=== PATIENT | female | born 1955 | race Caucasian/White ===

== ENCOUNTER → 2017-11-09 | Outpatient (CLI) | payer OTHER ==
[~2017-11-09] MED LIST: ASP81CT PO; ASPI-892 PO; CARV3.122 PO; DEPO ESTRADIOL IM; ENAL2.5T PO; ENLP10T PO; FERR240T9 PO; FERR27TA PO; HYDR-2889 PO; HYDR1TAB8 OP; IBP200T PO; LOVA10TA PO; LOVA20TA2 PO; MELO-195 PO; MTF500T PO; NAPR220C11 PO; OMG1KC PO; OXYC-12 PO; PANT20TA2 PO; PNT40TEC PO; SIMV20TA3 PO
--- NOTE | 2017-11-09 10:01 | Diagnostic Imaging Report ---
PROCEDURE: CT chest without contrast. TECHNIQUE: Multiple contiguous axial images were obtained through the chest without the use of intravenous contrast. INDICATION: Followup lung nodule. COMPARISON: 11/06/2016. FINDINGS: There is upper lobe predominant mild emphysema changes. There is a nodule in the left lung base in the inferior lingula demonstrating calcification and measuring 1.5 cm. This is stable from the previous exam when measured in a similar fashion and is compatible with a granuloma. No other pulmonary nodule, mass, or significant consolidation is seen. The heart size is normal. No pericardial or pleural effusion. The thoracic aorta is normal in caliber. There is no mediastinal mass. No axillary lymphadenopathy. There is a nodule measuring 1.3 cm seen in the medial aspect of the left breast. Evaluation with breast ultrasound and mammogram is recommended. Sections of the upper abdomen demonstrate hepatic steatosis. The osseous structures demonstrate degenerative changes in the thoracic spine. IMPRESSION: 1. A 1.3-cm medial left breast nodule. Evaluation with mammogram and ultrasound is recommended. 2. Stable calcified 1.5-cm nodule in the left lung base suggestive of a prior granulomatous infection. Report was stat faxed to office of Chrissy Morales APRN, @ 9:59 AM/raji. Dictated by: Dictated on workstation # [id number]
== END ==
LOC: RAD 08:29
PROVIDERS: ATTEND Nurse Practitioner Family
DX: R91.1 Solitary pulmonary nodule (principal); N63.20 Unspecified lump in the left breast, unspecified quadrant
CPT/HCPCS: 71250

== ENCOUNTER → 2017-12-02 | Outpatient (CLI) | payer BC, OTHER ==
--- NOTE | 2017-12-03 13:06 | Diagnostic Imaging Report ---
EXAMINATION: Bilateral screening mammogram with CAD. INDICATION: Screening. COMPARISON: 05/15/2015 and 11/14/2014. PERSONAL HISTORY: At this time, there are no current complaints. FINDINGS: The previous exam did note that there was a small nodular density in the lateral aspect of the left breast. This nodular density had been biopsied and there was a stereotactic clip within the density. 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 That finding is again evident and does not seem to have changed significantly. The previous exam also identified another similar-appearing nodular density in the medial aspect of the left breast at the 9 to 10 o'clock position roughly 11 cm from the nipple. This nodular density measured approximately 1.5 cm in maximum length. That nodular density is again identified and now measures 2.0 cm. I do suspect that this is a benign process and this may represent another fibroadenoma. This nodule was also identified by ultrasound on the prior exam of 05/15/2015. At that time, the nodule measured 1.0 x 0.4 x 0.8 cm. The overall appearance of the breasts has not changed significantly otherwise. There is no primary or secondary sign of malignancy noted. IMPRESSION: 1. In the roughly 30 month interval since the prior exam, the small benign-appearing nodular density in the medial aspect of the left breast has increased in size. This is still most likely a benign process but ultrasound would be recommended for further evaluation. 2. The overall appearance of the breast is otherwise stable. There is no primary or secondary sign of malignancy noted. ACR BI-RADS Category 0: Incomplete. (Needs additional imaging evaluation). Result letter will be mailed to the patient. Note: At least 10% of breast cancer is not imaged by mammography. Dictated on workstation # [id number]
== END ==
LOC: RAD 14:54
PROVIDERS: ATTEND Family Medicine
DX: Z12.31 Encounter for screening mammogram for malignant neoplasm of breast (principal)
CPT/HCPCS: 77067

== ENCOUNTER → 2017-12-14 | Outpatient (CLI) | payer BC ==
--- NOTE | 2017-12-14 16:03 | Diagnostic Imaging Report ---
INDICATION: Enlarging nodules noted on the recent mammogram. COMPARISON: Correlation is made with the recent screening mammogram from 12/02/2017 and a left breast ultrasound from 05/15/2015. FINDINGS: There are three well-defined hypoechoic nodules noted in the left breast. The mass at the 2:30 location 5 cm from the nipple measures 1.0 x 0.5 x 0.8 cm and contains a clip from a recent biopsy. This was proven to represent a fibroadenoma. A hypoechoic nodule at the 1:30 location 5 cm from the nipple measures 0.8 x 0.5 x 0.9 cm, stable and most consistent with a fibroadenoma. An ovoid solid nodule at the 10 o'clock location 6 cm from the nipple is seen measuring 1.0 x 0.5 x 1.3 cm. This does show a slight increase in size when compared with the prior mammogram and ultrasound. No new mass is seen. IMPRESSION: 1. Stable hypoechoic nodules at the 2:30 and 1:30 location of the left breast, most consistent with fibroadenomas. 2. Slight increase in the size of a solid nodule at the 10 o'clock location of the left breast. This, too, most likely represents a mildly enlarging fibroadenoma; however, further evaluation with an ultrasound-guided core biopsy is recommended for confirmation. ACR BI-RADS Category 4: Suspicious abnormality. Result letter will be mailed to the patient. Note: At least 10% of breast cancer is not imaged by mammography. Dictated by: Dictated on workstation # [id number]
== END ==
LOC: RAD 13:44
PROVIDERS: ATTEND Family Medicine
DX: N63.21 Unspecified lump in the left breast, upper outer quadrant (principal); N63.22 Unspecified lump in the left breast, upper inner quadrant
CPT/HCPCS: 76642

== ENCOUNTER → 2017-12-21 | Outpatient (CLI) | payer BC ==
[~2017-12-21] VITALS: Ht 170.2 cm; Wt 95.3 kg
[~2017-12-21] MED LIST changes: +LIDOCAINE 1% INJ 20 ML (XYLOCAINE) VIAL INJ ONE; +LIDOCAINE 1% INJ 50 ML (XYLOCAINE) VIAL ONE
[2017-12-21 14:16] VITALS: BP 118/67
[2017-12-21 15:10] VITALS: BP 120/69
--- NOTE | 2017-12-21 15:25 | Diagnostic Imaging Report ---
INDICATION: Left breast mass. Patient presents for ultrasound-guided biopsy of the hypoechoic nodule at the 10 o'clock location. TECHNIQUE: The patient was brought to the procedure room and placed on the bed in the supine position. Ultrasound imaging over the left breast was performed to evaluate for appropriate entry site. The left breast was prepped and draped in the usual sterile fashion. A small amount of 1% lidocaine was utilized for local anesthesia. A total of three passes was made with a 14-gauge Achieve needle obtaining core biopsies. A localizer clip was then deployed adjacent to the mass. Hemostasis was obtained using manual compression. The patient tolerated the procedure well and was sent for postprocedure mammography in satisfactory condition. IMPRESSION: Successful ultrasound-guided core biopsy of the hypoechoic mass at the 10 o'clock location of the left breast. Dictated by: Dictated on workstation # [id number]
--- NOTE | 2017-12-21 15:56 | Diagnostic Imaging Report ---
Indication: Status post left breast biopsy. Comparison: Correlation is made with the examination from 12/02/2017. Findings: A biopsy clip is identified in the upper inner left breast at the site of previously noted nodule. There is some increased density at this location consistent with hematoma. Impression: Clip location is noted adjacent to the nodule in the upper inner left breast. Dictated by: Dictated on workstation # [id number]
== END ==
LOC: RAD 13:46
PROVIDERS: ATTEND Family Medicine
DX: N63.0 Unspecified lump in unspecified breast (principal)
CPT/HCPCS: 19083

== ENCOUNTER → 2019-04-06 | Outpatient (CLI) | payer BC, OTHER ==
[~2019-04-06] MED LIST changes: +CATHETER FLUSH 10 ML SYR IV PRN; -LIDOCAINE 1% INJ 20 ML (XYLOCAINE) VIAL INJ ONE; -LIDOCAINE 1% INJ 50 ML (XYLOCAINE) VIAL ONE; +REGADENOSON 0.4 MG/5 ML SYR (LEXISCAN) IV ONE
--- NOTE | 2019-04-06 15:37 | STRESS TEST ---
DATE OF SERVICE: 04/06/2019 LEXISCAN MYOVIEW STRESS TEST REPORT REFERRING PHYSICIAN Dr. Doug Correa. Baseline heart rate is 46. Baseline blood pressure is 137/72. Baseline EKG is sinus rhythm with no ischemic changes. In summary, the patient was injected with 10.59 mCi of technetium-99 Myoview and the resting images were obtained. Then, the patient received 0.4 mg of Lexiscan followed by 30.4 mCi of technetium-99 Myoview. Throughout the test, there were no EKG changes. The resting and stress images were reviewed and compared in the short axis, horizontal long axis, and vertical long axis views. Review of the images showed good radiotracer uptake with breast attenuation, there is mild decreased uptake at the basal to mid anterior septum with subtle reversibility, no significant ischemia was noted. SSS is 5, SDS 5, TID value 1.0. On the gated images, the left ventricle appeared to be normal size with normal contractility. Calculated ejection fraction 53%. CONCLUSION: 1. The patient tolerated Lexiscan well. 2. Breast attenuation with typical female pattern, no significant ischemia or infarction on SPECT images. 3. Normal left ventricular size with normal contractility. Calculated ejection fraction is 53%. Job ID: [id number] DocumentID: [id number] Dictated Date: 04/06/2019 15:14:10 Cutter Apprentice Hand Date: 04/06/2019 15:36:38 Dictated By: COLTON LARSEN MD
== END ==
LOC: CARD 09:32
PROVIDERS: ATTEND Physician Assistant
DX: I25.10 Atherosclerotic heart disease of native coronary artery without angina pectoris (principal); I11.0 Hypertensive heart disease with heart failure; I50.22 Chronic systolic (congestive) heart failure; E78.5 Hyperlipidemia, unspecified; E11.9 Type 2 diabetes mellitus without complications
CPT/HCPCS: 78452; 93017

== ENCOUNTER → 2021-09-16 | Outpatient (CLI) | payer BC, OTHER ==
[~2021-09-16] MED LIST changes: -CATHETER FLUSH 10 ML SYR IV PRN; -REGADENOSON 0.4 MG/5 ML SYR (LEXISCAN) IV ONE
--- NOTE | 2021-09-16 12:33 | Diagnostic Imaging Report ---
INDICATION: Routine screening. COMPARISON: 12/02/2017 and 11/14/2014. TECHNIQUE: 2D and 3D bilateral screening mammography was performed with CAD. FINDINGS: Scattered fibroglandular densities are identified bilaterally. The nodular densities in the left breast appear stable. Marker clips adjacent to the densities are noted, consistent with prior biopsy. No new mass is identified. No malignant-appearing microcalcifications are seen. IMPRESSION: No mammographic features suspicious for malignancy are identified. ACR BI-RADS Category 2: Benign findings. Result letter will be mailed to the patient. Note: At least 10% of breast cancer is not imaged by mammography. Dictated by: Dictated on workstation # [id number]
== END ==
LOC: RAD 09:24
PROVIDERS: ATTEND Family Medicine
DX: Z12.31 Encounter for screening mammogram for malignant neoplasm of breast (principal)
CPT/HCPCS: 77063; 77067

== ENCOUNTER → 2023-04-22 | Outpatient (CLI) | payer MEDICARE, OTHER, MEDICAID ==
--- NOTE | 2023-04-22 20:22 | Diagnostic Imaging Report ---
INDICATION: Routine screening. COMPARISON: Prior mammograms from 09/16/2021 and 12/02/2017. EXAMINATION: 2D and 3D bilateral screening mammography was performed with CAD. The current study was also evaluated with a Computer Aided Detection (CAD) system. FINDINGS: Scattered fibroglandular densities are identified, bilaterally. Nodular densities in the medial and lateral left breast with marker clips again noted appear stable. No new mass or malignant-appearing microcalcifications are seen. Axillae are unremarkable. IMPRESSION: No mammographic features suspicious for malignancy are identified. ACR BI-RADS Category 2: Benign findings. Result letter will be mailed to the patient. Note: At least 10% of breast cancer is not imaged by mammography. Dictated by: Dictated on workstation # [id number]
== END ==
LOC: RAD 09:44
PROVIDERS: ATTEND Family Medicine
DX: Z12.31 Encounter for screening mammogram for malignant neoplasm of breast (principal)
CPT/HCPCS: 77063; 77067

== ENCOUNTER → 2023-07-20 | Outpatient (CLI) | payer MEDICARE, OTHER, MEDICAID | LOC: CARD 12:40 | PROVIDERS: ATTEND Physician Assistant | DX: R07.9 Chest pain, unspecified (principal); I11.9 Hypertensive heart disease without heart failure | CPT/HCPCS: 93306 ==

== ENCOUNTER → 2023-08-31 | Outpatient (CLI) | payer MEDICARE, OTHER, MEDICAID ==
[~2023-08-31] VITALS: Ht 175 cm; Wt 96.0 kg
[~2023-08-31] MED LIST changes: +AMLO-250 PO; +ASCO-262 PO; +ASPI-1238 PO; +BACL10TA PO; +CARV12.53 PO; +CHOL-34 PO; +ENAL-70 PO; +ESTR1TAB27 PO; +EZET10TA49 PO; +FENO145T26 PO; +FERR-84 PO; +INSU100I88 SQ; +METF-397 PO; +NAPR-1033 PO; +OMEG100032 PO; +PANT40TA52 PO; +REGADENOSON 0.4 MG/5 ML SYR IV ONE; +SEMA1PEN3 SQ; +TR1O15 TP
[2023-08-31] MEDS: CATHETER FLUSH 10 ML SYR IVP PRN ×2 (07:39→09:04)
[2023-08-31 08:51] VITALS: BP 154/86
--- NOTE | 2023-08-31 12:43 | Cardiology Stress Test Report ---
Stress Test Report Date of Procedure/Referring: Date of Procedure: Aug 31, 2023 PCP Tamara Perez MD Admitting Physician Admitting Physician: Attending Physician: Deandra Pires Baseline Heart Rate: 71 Baseline Blood Pressure: Blood Pressure Systolic: 154 Blood Pressure Diastolic: 86 Baseline Vitals Vital Signs Date Time Temp Pulse Resp B/P (MAP) Pulse Ox O2 Delivery O2 Flow Rate FiO2 08/31/23 08:51 70 154/86 (108) 98 Room Air Baseline EKG: Baseline EKG: NSR Summary After explaining the procedure to the patient, she signed a consent and then brought to the stress nuclear laboratory. Patient received 0.4 mg Lexiscan for stress test, ECG, heart rate and blood pressure were monitored continuously. Resting and stress dose of radio tracer were injected, imaging was acquired and reviewed in short axis, horizontal long axis and vertical long axis views. TID: 1.01 SSS: 7 SDS: 6 EF: 59 Patient tolerated lexiscan well Reversible ischemia involving the anterior wall, jorge apex Normal left ventricular size, EF 59 Copy Copies To 1: TAMARA PEREZ MD, BASHAR J MD Aug 31, 2023 12:43
== END ==
LOC: CARD 07:26
PROVIDERS: ATTEND Physician Assistant
DX: I25.9 Chronic ischemic heart disease, unspecified (principal); I25.10 Atherosclerotic heart disease of native coronary artery without angina pectoris
CPT/HCPCS: 78452; 93017; A9502

== ENCOUNTER 2023-09-09 07:53 | Day surgery (SDC) | payer MEDICARE, OTHER, MEDICAID ==
[2023-09-09] VITALS (11 sets, daily range): BP systolic 104–146; BP diastolic 64–90
[~2023-09-09] VITALS: Ht 175.3 cm; Wt 96.7 kg
[~2023-09-09 07:53] MED LIST changes: -AMLO-250 PO; -ASCO-262 PO; -ASPI-1238 PO; -BACL10TA PO; -CARV12.53 PO; -CHOL-34 PO; -ENAL-70 PO; -ESTR1TAB27 PO; -EZET10TA49 PO; -FENO145T26 PO; -FERR-84 PO; -INSU100I88 SQ; -METF-397 PO; -NAPR-1033 PO; -OMEG100032 PO; -PANT40TA52 PO; -REGADENOSON 0.4 MG/5 ML SYR IV ONE; -SEMA1PEN3 SQ; -TR1O15 TP
[2023-09-09] MEDS ORDERED: NS IV 1000 ML 1,000 ML IV SCH ×2 (08:00→09:45)
[2023-09-09] MEDS ORDERED: LIDOCAINE 1% INJ 20 ML VIAL ONE (08:01)
[2023-09-09] MEDS ORDERED: NS IV 1000 ML 1,000 ML ONE (08:01)
[2023-09-09] MEDS ORDERED: HEParin (CATH LAB) 2,000 ML IV ONE (08:01)
[2023-09-09 08:30] LABS: HEMATOCRIT 40 % (35-52); HEMOGLOBIN 13.5 g/dL (11.5-16.0); MEAN CORPUSCULAR HEMOGLOBIN 33 pg (25-34); MEAN CORPUSCULAR HGB CONC 34 g/dL (32-36); MEAN CORPUSCULAR VOLUME 96 fL (80-99); MEAN PLATELET VOLUME 10.9 fL (9.0-12.2); PLATELET COUNT 242 10^3/uL (130-400)
--- NOTE | 2023-09-09 08:30 | Diagnostic Imaging Report ---
EXAMINATION: Chest 1 view HISTORY: Preoperative exam COMPARISON: 08/27/2014 FINDINGS: The lungs are clear without edema or pneumonia. No pleural effusion or pneumothorax. Heart size is normal. IMPRESSION: 1. Clear lungs. Dictated by: Dictated on workstation # [id number]
[2023-09-09 08:37] LABS: BACTERIA,URINE MODERATE /HPF; BILIRUBIN,URINE NEGATIVE (NEGATIVE); CLARITY,URINE CLOUDY; COLOR,URINE YELLOW; GLUCOSE, URINE (UA) NEGATIVE (NEGATIVE); KETONES,URINE NEGATIVE (NEGATIVE); LEUKOCYTE ESTERASE ,URINE NEGATIVE (NEGATIVE); NITRITE,URINE NEGATIVE (NEGATIVE); PH,URINE 7.5 (5-9); PROTEIN,URINE NEGATIVE (NEGATIVE); WBC,URINE 0-2 /HPF
[2023-09-09 08:38] LABS: SQUAMOUS EPITHELIAL CELL,UR 25-50 /HPF
[2023-09-09 08:41] LABS: PROTHROMBIN TIME PATIENT 13.1 SEC (12.2-14.7)
[2023-09-09] MEDS ORDERED: MIDAZOLAM INJ 5 MG/5 ML VIAL ONE (08:47)
[2023-09-09] MEDS ORDERED: fentaNYL INJECTION 100 MCG/2 ML VIAL ONE (08:47)
[2023-09-09] MEDS ORDERED: VERAPAMIL 5 MG/2 ML (CALAN) VIAL IV ONE (08:47)
[2023-09-09] MEDS ORDERED: HEParin 1000 UNIT/ML (10ML VIAL) FOR BOLUS ONE (08:47)
[2023-09-09] MEDS ORDERED: NITRO DRIP 25000 MCG/D5W 0 ML IV ONE (08:48)
[2023-09-09 08:51] LABS: ALBUMIN 4.1 GM/DL (3.2-4.5); BILIRUBIN,TOTAL 0.5 MG/DL (0.1-1.0); CALCIUM 9.4 MG/DL (8.5-10.1); CREATININE SERUM 0.81 MG/DL (0.60-1.30); POTASSIUM 3.9 MMOL/L (3.6-5.0); TOTAL PROTEIN 7.1 GM/DL (6.4-8.2)
--- NOTE | 2023-09-09 08:51 | Cardiac Procedure Note-CS/ASA ---
Pre-Procedure Note Pre-Op Procedure Note Date of Available H&P: Aug 31, 2023 Date H&P Reviewed: Sep 09, 2023 Time H&P Reviewed: 08:51 History & Physical: H&P Reviewed, Patient Examed, No changes noted Pre-Operative Diagnosis: CAD Moderate Sedation PreProcedure Time 08:51 ASA Score 3 Airway Lungs Heart ASA score ASA 1: a normal healthy patient ASA 2: a patient with a mild systemic disease (mid diabetes, controlled hypertension, obesity ASA 3: a patient with a severe systemic disease that limits activity (angina, COPD, prior Myocardial infarction) ASA 4: a patient with an incapacitating disease that is a constant threat to life (CHF, renal failure) ASA 5: a moribund patient not expected to survive 24 hrs. (ruptured aneurysm) ASA 6: a declared brain- patient whose organs are being harvested. For emergent operations, add the letter E after the classification Mallampati Classification Grade 3 Sedation Plan Analgesia, Amnesia, Plan communicated to team members, Discussed options with patient/fam, Discussed risks with patient/fam The patient is an appropriate candidate to undergo the planned procedure, sedation, and anesthesia. The patient immediately re-assessed prior to indication. COLTON LARSEN MD Sep 09, 2023 08:51
[2023-09-09] MEDS ORDERED: INSU100I88 SQ (08:53)
[2023-09-09] MEDS ORDERED: FERR-84 PO (08:53)
[2023-09-09] MEDS ORDERED: OMEG100032 PO (08:53)
[2023-09-09] MEDS ORDERED: PANT40TA52 PO (08:53)
[2023-09-09] MEDS ORDERED: CHOL-34 PO (08:53)
[2023-09-09] MEDS ORDERED: NAPR-1033 PO (08:53)
[2023-09-09] MEDS ORDERED: ASCO-262 PO (08:53)
[2023-09-09] MEDS ORDERED: ESTR1TAB27 PO (08:53)
[2023-09-09] MEDS ORDERED: FENO145T26 PO (08:53)
[2023-09-09] MEDS ORDERED: SEMA1PEN3 SQ (08:53)
[2023-09-09] MEDS ORDERED: ASPI-1238 PO (08:53)
[2023-09-09] MEDS ORDERED: AMLO-250 PO (08:53)
[2023-09-09] MEDS ORDERED: ENAL-70 PO (08:53)
[2023-09-09] MEDS ORDERED: CARV12.53 PO (08:53)
[2023-09-09] MEDS ORDERED: TR1O15 TP (08:53)
[2023-09-09] MEDS ORDERED: BACL10TA PO (08:53)
[2023-09-09] MEDS ORDERED: METF-397 PO (08:59)
[2023-09-09] MEDS ORDERED: EZET10TA49 PO (08:59)
--- NOTE | 2023-09-09 09:42 | Discharge Inst-Post CATH ---
Discharge Inst-CATH/EP Problems Reviewed?: Yes Post Cardiac Cath/EP D/C Inst Follow Up/Plan Appointment with Dr. Cadena's office in 4 weeks <b>CARDIAC CATH/EP PROCEDURE DISCHARGE INSTRUCTIONS</b> ACTIVITY * Go Home directly and rest. * Limit activity of the leg (or wrist if it was used) for 7 days including aerobics, swimming, jogging, bicycling, etc. * Restrict stair-climbing for 7 days if possible, if not, climb up with your non-cath leg, then bring together on the same step. * Avoid lifting, pushing, pulling or excessive movement of the affected extremity for 7 days. * Customary sexual activity may be resumed after 2 days-use caution not to use a position that strains or causes pain to the affected extremity. * No driving for 24 hours. * NO SMOKING. * Avoid straining for bowel movements for 7 days. * Gentle walking on level ground is allowed. * Returning to work will depend on the type of procedure and the results. Your doctor will discuss this with you. CALL YOUR DOCTOR FOR ANY OF THE FOLLOWING: *If bleeding from the puncture site occurs- Apply gentle pressure to site with clean cloth and call your doctor or EMS. * If a knot or lump forms under the skin, increases in size, or causes pain. * If bruising appears to be worsening or moving further down your leg instead of disappearing. * Temperature above 101 F. CARE OF YOUR GROIN INCISION; * Bruising or purple discoloration of the skin near the puncture site is common. * You may shower only, no bathtub bathing for 5 days. Be careful to avoid slipping as your leg may feel stiff. * If a closure device was used on your femoral artery, please see the attached guide regarding care of the device and your leg. * Leave dressing on FOR 24 hours. CARE OF YOUR WRIST INCISION; * Bruising or purple discoloration of the skin near the puncture site is common. * You may shower. * DO NOT submerge wrist. * Leave dressing on FOR 24 hours. COLTON CADENA MD Sep 09, 2023 09:42
[2023-09-09] MEDS ORDERED: PATIENT MAY USE OWN MEDS, ALL PO SCH (09:45)
--- NOTE | 2023-09-09 09:45 | Cardiac Cath Report ---
Cardiac Cath Report Physician (s)/Head Chopper (s) Physician COLTON LARSEN MD Pre-Procedure Diagnosis Pre-Procedure Diagnosis: CAD Post-Procedure Note Procedure Start Date: Sep 09, 2023 Name of Procedure: Left heart catheterization Findings/Procedure Note PROCEDURE NOTE: 68-year-old lady with history of hypertension, hyperlipidemia, has been having chest pain, had an abnormal stress test, cardiac catheterization was advised. After explaining the procedure to the patient, all pros and cons were explained, all questions were answered. The patient signed the consent and then she was placed in the cardiac catheterization laboratory. Attempt to access the right radial artery failed to advance the wire, the wire and the needle were removed and manual pressure applied. Groin was prepped in SL fashion local anesthesia was used. Sheath placed in the right femoral artery. Jed' right and left catheter were used to access the coronary system. Jed right was prolapsed to the left ventricular cavity, pressure was measured, pullback LV to aorta was done. No left ventriculogram was done. At the end of the procedure the sheath was removed. Closure device was deployed FINDINGS: Hemodynamics LV 122/9, end-diastolic pressure of 9 Aorta 128/59 mean of 88 ANATOMY: Left Main is free of obstructive disease Left Anterior Descending is moderate in size with mild disease distally nono bstructive disease Left Circumflex is free of obstructive disease Right Coronary Artery is dominant artery with mild tortuosity no significant obstructive disease LV Gram was not done, pressure was measured CONCLUSION: Mild coronary artery disease nonobstructive disease Normal left ventricular end-diastolic pressure DISCUSSION AND RECOMMENDATION: Abnormal stress test is probably due to extracardiac attenuation, medical therapy is recommended, no intervention is needed Anesthesia Type: Conscious Sedation Estimated blood loss (mL): 10 ml Contrast Amount: 32 ml Total Radiation Dose: 377 mGy Post-Procedure Diagnosis Post-operative diagnosis: Chest pain Coronary artery disease Hypertension Hyperlipidemia COLTON LARSEN MD Sep 09, 2023 09:45
== END 2023-09-09 14:15 ==
LOC: CATH 07:53 → EDSTATUS 10:00 → SDC 10:04 → CATH 14:15
PROVIDERS: ATTEND Internal Medicine Cardiovascular Disease
DX: I25.10 Atherosclerotic heart disease of native coronary artery without angina pectoris (principal); I65.29 Occlusion and stenosis of unspecified carotid artery; I11.0 Hypertensive heart disease with heart failure; I50.22 Chronic systolic (congestive) heart failure; E66.9 Obesity, unspecified; R94.39 Abnormal result of other cardiovascular function study; E11.9 Type 2 diabetes mellitus without complications; E78.2 Mixed hyperlipidemia; Z68.31 Body mass index [BMI] 31.0-31.9, adult; Z87.891 Personal history of nicotine dependence
CPT/HCPCS: 36140; 71045; 80053; 80061; 81000; 85027; 85610; 85730; 87081; 93005; 93458; C1760; C1894; 36415

== ENCOUNTER 2023-09-09 18:42 | Emergency (ER) | payer MEDICARE, OTHER, MEDICAID ==
[~2023-09-09] VITALS: Ht 175 cm; Wt 97.5 kg
[~2023-09-09 18:42] MED LIST changes: +AMLO-250 PO; +ASCO-262 PO; +ASPI-1238 PO; +BACL10TA PO; +CARV12.53 PO; +CHOL-34 PO; +ENAL-70 PO; +ESTR1TAB27 PO; +EZET10TA49 PO; +FENO145T26 PO; +FERR-84 PO; +INSU100I88 SQ; +METF-397 PO; +NAPR-1033 PO; +OMEG100032 PO; +PANT40TA52 PO; +SEMA1PEN3 SQ; +TR1O15 TP
--- NOTE | 2023-09-09 19:08 | ED General ---
General Chief Complaint: Post OP Complications/Pain Stated Complaint: LEG PAIN HAD HEART CATH TODAY Nursing Triage Note: PT TO RM 9 BY WC WITH C/O R LEG LUMP AND PAIN NOTICED AROUND 1830. PT HAD HEART CATH TODAY THROUGH R GROIN. NO THINNERS Source of Information: Patient Exam Limitations: No Limitations History of Present Illness Date Seen by Provider: Sep 09, 2023 Time Seen by Provider: 19:08 Allergies and Home Medications Allergies Coded Allergies: simvastatin (Verified Allergy, Mild, 09/09/23) LEG CRAMPS Penicillins (Unverified Allergy, Unknown, HIVES, 08/27/14) atorvastatin (Verified Allergy, Unknown, 09/09/23) LEG CRAMPS Patient Home Medication List Amlodipine Besylate (Amlodipine Besylate) 5 Mg Tablet, 5 MG PO HS, (Reported) Entered as Reported by: GREYSON PLASCENCIA on 09/09/23 08 Ascorbate Calcium (Vitamin C) 500 Mg Tablet, 500 MG PO DAILY, (Reported) Entered as Reported by: GREYSON PLASCENCIA on 09/09/23 08 Aspirin (Aspirin EC) 81 Mg Tablet.dr, 81 MG PO DAILY, (Reported) Entered as Reported by: GREYSON PLASCENCIA on 09/09/23 08 Baclofen (Baclofen) 10 Mg Tablet, 10 MG PO TID PRN for MUSCLE CRAMPS, (Reported) Entered as Reported by: GREYSON PLASCENCIA on 09/09/23 08 Carvedilol (Carvedilol) 12.5 Mg Tablet, 12.5 MG PO BID, (Reported) Entered as Reported by: GREYSON PLASCENCIA on 09/09/23 08 Cholecalciferol (Vitamin D3) (Vitamin D3) 25 Mcg (1000 Unit) Tablet, 25 MCG PO DAILY, (Reported) Entered as Reported by: GREYSON PLASCENCIA on 09/09/23 08 Enalapril Maleate (Enalapril Maleate) 20 Mg Tablet, 20 MG PO BID, (Reported) Entered as Reported by: GREYSON PLASCENCIA on 09/09/23 08 Estradiol (Estrace Tablet) 1 Mg Tablet, 1 MG PO DAILY, (Reported) Entered as Reported by: GREYSON PLASCENCIA on 09/09/23 08 Ezetimibe (Ezetimibe) 10 Mg Tablet, 10 MG PO DAILY, (Reported) Entered as Reported by: GREYSON PLASCENCIA on 09/09/23858 Fenofibrate Nanocrystallized (Fenofibrate) 145 Mg Tablet, 145 MG PO HS, (Reported) Entered as Reported by: GREYSON PLASCENCIA on 09/09/23852 Ferrous Sulfate (Iron) 325 Mg (65 Mg Iron) Tablet, 325 MG PO HS, (Reported) Entered as Reported by: GREYSON PLASCENCIA on 09/09/23852 Insulin Detemir (Levemir Flexpen) 100 Unit/Ml (3 Ml) Insuln.pen, 50 UNIT SQ HS, (Reported) Entered as Reported by: GREYSON PLASCENCIA on 09/09/23852 Metformin HCl (Metformin HCl) 500 Mg Tablet, 500 MG PO BID, (Reported) Entered as Reported by: GREYSON PLASCENCIA on 09/09/23858 Naproxen Sodium (Naproxen Sodium) 220 Mg Tablet, 220 MG PO Q12H PRN for PAIN- MILD (1-4), (Reported) Entered as Reported by: GREYSON PLASCENCIA on 09/09/23852 [place]-3/Dha/Epa/Fish Oil (Fish Oil 1,000 mg Softgel) 1,000 Mg (120 Mg-180 Mg) Capsule, 1,000 MG PO HS, (Reported) Entered as Reported by: GREYSON PLASCENCIA on 09/09/23852 Pantoprazole Sodium (Pantoprazole Sodium) 40 Mg Tablet.dr, 40 MG PO DAILY, (Reported) Entered as Reported by: GREYSON PLASCENCIA on 09/09/23852 Semaglutide (Ozempic) 1 Mg/0.75 Ml (4 Mg/3 Ml) Pen.injctr, 0.5 MG SQ THURSDAY, (Re ported) Entered as Reported by: GREYSON PLASCENCIA on 09/09/23852 Triamcinolone Acet (Triamcinolone Acetonide 0.1% Ointment) 0.1 % Oint, 1 APPLIC TP BID PRN for ITCHING, (Reported) Entered as Reported by: GREYSON PLASCENCIA on 09/09/23852 Discontinued Medications Aspirin (Aspirin 81 Mg Chew Tab) 81 Mg Chew, 81 MG PO DAILY, (Reported) Discontinued Reason: No Longer Taking Entered as Reported by: MARSHALL SOTELO on 04/09/12 1319 Carvedilol (Carvedilol) 3.125 Mg Tablet, 6.25 MG PO BID, (Reported) Discontinued Reason: No Longer Taking Entered as Reported by: THAD RICHEY on 04/10/12 0356 Enalapril Maleate (Vasotec Tablet) 10 Mg Tab, 10 MG PO BID, (Reported) Discontinued Reason: No Longer Taking Entered as Reported by: REGINE PENA on 08/27/14 1107 Ferrous Gluconate (Iron) 1 Tab Tablet, 65 MG PO BID, (Reported) Discontinued Reason: No Longer Taking Entered as Reported by: REGINE PENA on 08/27/14 110 Hydrocodone Bit/Ibuprofen (Vicoprofen 200-7.5 Mg Tab) 1 Each Tablet, 1 EACH OP Q 4 - 6 HRS PRN PRN for PAIN, (Reported) Discontinued Reason: No Longer Taking Entered as Reported by: REGINE PENA on 08/27/14 110 Metformin Hcl (Metformin 500 Mg) 500 Mg Tablet, PO UD, (Reported) Discontinued Reason: No Longer Taking Entered as Reported by: RADHA DEL CASTILLO on 04/01/11 2215 [place] 3 Polyunsat Fatty Acids (Fish Oil) 1,000 Mg Cap, 1,000 MG PO DAILY, (Reported) Discontinued Reason: No Longer Taking Entered as Reported by: REGINE PENA on 08/27/141106 Pantoprazole Sod (Protonix Tab) 40 Mg Tab, 40 MG PO DAILY, (Reported) Discontinued Reason: No Longer Taking Entered as Reported by: REGINE PENA on 08/27/14 110 Simvastatin (Simvastatin) 20 Mg Tablet, 20 MG PO HS, (Reported) Discontinued Reason: No Longer Taking Entered as Reported by: REGINE PENA on 08/27/14 110 Past Lzoyqkm-Ninctd-Wmoijx Hx Patient Social History Tobacco Use?: No Use of E-Cig and/or Vaping dev: No Substance use?: No Alcohol Use?: No Pt feels they are or have been: No Past Medical History Surgery/Hospitalization HX: DM, HTN, HLD, HEART CATH, TOTAL HYST, R TKR Hysterectomy, Joint Replacement High Cholesterol, Hypertension Reproductive Disorders: No Gastroesophageal Reflux Diabetes, Non-Insulin dep Family Medical History No Pertinent Family Hx Physical Exam Vital Signs Vital Signs - First Documented 09/09/23 18:55 Temp 36.4 Pulse 95 Resp 16 B/P (MAP) 134/87 (103) Pulse Ox 97 O2 Delivery Room Air Capillary Refill : Height, Weight, BMI Height: 5'7.00" Weight: 210lbs. 0.0oz. 95.074391ai; 31.00 BMI Method:Stated Progress/Results/Core Measures Suspected Sepsis SIRS Temperature: Pulse: 95 Respiratory Rate: 16 Blood Pressure 134 /87 Mean: 103 Results/Orders My Orders Orders - AGUILAR ZAPATA MD Right Low Ext [id number] (09/09/23 19:14) Vital Signs/I&O 09/09/23 18:55 Temp 36.4 Pulse 95 Resp 16 B/P (MAP) 134/87 (103) Pulse Ox 97 O2 Delivery Room Air Capillary Refill : Blood Pressure Mean: 103 Departure Impression Primary Impression: Postoperative hematoma Qualified Codes: L76.32 - Postprocedural hematoma of skin and subcutaneous tissue following other procedure Additional Impression: Postoperative pain Disposition: 01 HOME, SELF-CARE Condition: Stable Departure-Patient Inst. Decision time for Depature: 21:05 Referrals: TAMARA PEREZ MD (PCP/Family) Primary Care Physician Patient Instructions: HEMATOMA Add. Discharge Instructions: Follow postprocedural instructions provided by Dr. Cadena. Limit your activities over the next 24 to 48 hours. Avoid excessive up-and-down movements, prolonged time on your feet, and strenuous activity. You may apply an ice pack to the affected areas in 20-minute intervals. Expect significant discoloration as the blood breakdown products from the hematoma spread through the tissues of your leg and groin. Discoloration may expand and migrate for a few weeks and then should gradually dissipate and resolve. Return to care in the ER if you have worsening swelling, escalating pain, fever, drainage from your operative site, or other significant complications. Copy Copies To 1: COLTON CADENA MD Copies To 2: TAMARA PEREZ MD, JOSHUA T MD Sep 09, 2023 19:08
[2023-09-09 21:18] VITALS: BP 99/78
--- NOTE | 2023-09-09 21:21 | Diagnostic Imaging Report ---
INDICATION: Swelling and bruising in right groin post catheterization. Right groin arterial Doppler performed in the routine fashion with color flow Doppler waveform analysis. There is soft tissue edema in the right groin. There is a hematoma in the right groin anteriorly measuring about 3.9 cm. There is no pseudoaneurysm. IMPRESSION: Right groin hematoma as above without evidence of pseudoaneurysm or AV fistula. Dictated by: Dictated on workstation # [id number]
[2023-09-16] MEDS ORDERED: ESTR1TAB24 PO (15:33)
== END 2023-09-09 21:18 | disposition home or self-care (01) ==
LOC: EDUNIT# 18:42 → ER 18:44
DX: M96.841 Postprocedural hematoma of a musculoskeletal structure following other procedure (principal)
CPT/HCPCS: 93926; 99281